=== PATIENT | female | born 2005 | race Caucasian/White ===

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

== ENCOUNTER 2025-03-20 19:18 | Emergency (ER) | payer SELFPAY ==
[2025-03-20] MEDS ORDERED: Sodium Chloride 0.9% 2.5 ML Syringe FLUSH PRN (19:59)
[2025-03-20] MEDS ORDERED: Sodium Chloride 0.9% 10 ML Syringe FLUSH PRN (19:59)
[2025-03-20 20:03] LABS: APPEARANCE,URINE SLT CLOUDY; GLUCOSE,URINE NEGATIVE (NEGATIVE); OCCULT BLOOD,URINE MODERATE (NEGATIVE)
[2025-03-20 20:17] LABS: EPITHELIAL CELLS,URINE MODERATE (NONE-FEW)
[2025-03-20 20:23] LABS: BASOPHILS ABSOLUTE AUTO 0.05 K/uL (0.00-0.30); BASOPHILS PERCENT AUTO 0.6 % (0.0-1.0); EOSINOPHILS ABSOLUTE AUTO 0.06 K/uL (0.00-0.70); EOSINOPHILS PERCENT AUTO 0.7 % (0.0-5.0); IMMATURE GRAN ABSOLUTE AUTO 0.02 K/uL (0.00-0.05); IMMATURE GRAN PERCENT AUTO 0.2 % (0.0-0.4); LYMPHOCYTES ABSOLUTE AUTO 3.76 K/uL (2.00-8.80); LYMPHOCYTES PERCENT AUTO 42.7 % (50.0-65.0); MEAN PLATELET VOLUME 10.4 fL (9.4-12.3); MONOCYTES ABSOLUTE AUTO 0.69 K/uL (0.10-1.40); MONOCYTES PERCENT AUTO 7.8 % (2.0-10.0); NEUTROPHILS ABSOLUTE AUTO 4.22 K/uL (1.50-8.50); NEUTROPHILS PERCENT AUTO 48.0 % (35.0-45.0); NRBC ABSOLUTE 0.00 K/uL (0.00-0.03); NRBC PERCENT 0.0 /100WBC (0.0-0.2); PLATELET COUNT,PLT 341 K/uL (150-400); RED BLOOD CELL COUNT 5.34 M/uL (4.10-5.30); WHITE BLOOD CELL COUNT,WBC 8.80 K/uL (4.5-13.5)
[2025-03-20 20:50] LABS: A/G RATIO 1.5 (0.9-1.6); ALANINE AMINOTRANSFERASE,ALT 20.0 IU/L (14-63); ASPARTATE AMNIOTRANSFERASE,AST 16.0 IU/L (15-37); BILIRUBIN TOTAL 0.7 mg/dL (0.2-1.0); BLOOD UREA NITROGEN,BUN 12.0 mg/dL (7.0-18.0); CARBON DIOXIDE,CO2 31.4 mmol/L (21.0-32.0); CHLORIDE,CL 102.0 mmol/L (98-107); CREATININE 0.7 mg/dL (0.6-1.0); EST CRCL DRUG DOSING (CG) 81.83 mL/min; GLUCOSE RANDOM 101.0 mg/dL (74-106); POTASSIUM,K 4.0 mmol/L (3.5-5.1); PROTEIN TOTAL,TP 8.1 g/dL (6.4-8.2); SODIUM,NA 141.0 mmol/L (136-145)
[2025-03-20 20:54] LABS: ESTIMATED GFR 128.0 mL/min (>60)
== END 2025-03-20 21:59 | disposition home or self-care (01) ==
LOC: MW.ED 19:18
DX: R10.12 Left upper quadrant pain (principal); Z75.3 Unavailability and inaccessibility of health-care facilities
CPT/HCPCS: 36415; 80053; 81001; 81025; 83735; 85025; 86308; 87651; 96360; 99284; J7030; 99283